=== PATIENT | female | born 1950 | race Caucasian/White ===

== ENCOUNTER 2017-10-15 22:44 | Emergency (ER) | payer OTHER, MEDICARE ==
[~2017-10-15] VITALS: Ht 170.2 cm; Wt 77.1 kg
--- NOTE | 2017-10-15 23:53 | ED GENERAL ADULT ---
History of Present Illness General Chief Complaint: General Adult Stated Complaint: HIGH BP Source: patient, family, old records Exam Limitations: no limitations Vital Signs & Intake/Output Vital Signs & Intake/Output Vital Signs Date Time Temp Pulse Resp B/P B/P Pulse O2 O2 Flow FiO2 Mean Ox Delivery Rate 10/15 2353 174/82 10/15 2351 Room Air 10/15 2251 98.0 87 20 180/96 96 Room Air ED Intake and Output 10/16 0000 10/15 1200 Intake Total 0 Output Total Balance 0 Intake, Oral 0 Patient 170 lb Weight Allergies Coded Allergies: MDX - Morphine (MORPHINE) (Intermediate, RASH 06/11/10) MDX - Naproxen (From NAPROSYN) (Intermediate, RASH 06/11/10) Uncoded Allergies: Allergy Other N Med Allergies MORPHINE Reconcile Medications Aspirin (Aspirin*) 81 MG TAB.CHEW 1 TAB PO DAILY PROPHYLAXIS (Reported) Fenofibrate (Tricor) 48 MG TABLET 1 TAB PO DAILY HIGH CHOLESTEROL (Reported) Labetalol HCl 100 MG TABLET 1 TAB PO BID HYPERTENSION (Reported) Levothyroxine Sodium (Synthroid) 100 MCG TABLET 1 TAB PO DAILY HYPOTHYROIDISM (Reported) Triamterene/Hydrochlorothiazid (Dyazide 37.5-25 Capsule) 37.5 MG-25 MG CAPSULE 1 CAP PO DAILY HYPERTENSION (Reported) Triamterene/Hydrochlorothiazid (Dyazide 37.5-25 Capsule) 37.5 MG-25 MG CAPSULE 1 CAP PO DAILY DIURETIC (Reported) Triage Note: PT TO TRIAGE C/O HIGH BLOOD PRESSURE. MANUAL BP IN TRIAGE 180/96. DENIES PAIN, BLURRED VISION. STATES RECENT CHANGE IN BP MEDS, TAKE LABETOLOL 100MG. DENIES CP/SOB. Triage Nurses Notes Reviewed? yes HPI: Patient has been taking her blood pressure at home secondary to hypertension. Patient recently changed from metoprolol to labetalol. Patient blood pressure was elevated this evening. She denies any headache or blurry vision. There is no nausea or vomiting. She took it again and it was even higher so she comes into the emergency room for evaluation. Past History Travel History Traveled to [place] past 21 day No Medical History Any Pertinent Medical History? see below for history Cardiovascular: hypertension Endocrine: hypothyroidism Surgical History Surgical History: non-contributory Psychosocial History What is your primary language Croatian Tobacco Use: Current Not Daily Daily Tobacco Use Amount/Type: =< 4 Cigarettes daily ETOH Use: denies use Illicit Drug Use: denies illicit drug use Family History Hx Contributory? No Review of Systems Review of Systems Constitutional: Reports: no symptoms. EENTM: Reports: no symptoms. Respiratory: Reports: no symptoms. Cardiovascular: Reports: no symptoms. GI: Reports: no symptoms. Genitourinary: Reports: no symptoms. Musculoskeletal: Reports: no symptoms. Skin: Reports: no symptoms. Neurological/Psychological: Reports: no symptoms. Hematologic/Endocrine: Reports: no symptoms. Immunologic/Allergic: Reports: no symptoms. All Other Systems: Reviewed and Negative Physical Exam Physical Exam General Appearance: well developed/nourished, alert, awake, anxious Head: atraumatic, normal appearance Eyes: Bilateral: PERRL, EOMI. Ears, Nose, Throat: normal pharynx, normal ENT inspection, hearing grossly normal Neck: normal inspection, supple, full range of motion Respiratory: normal breath sounds, chest non-tender, no respiratory distress, lungs clear Cardiovascular: regular rate/rhythm, normal peripheral pulses Gastrointestinal: normal bowel sounds, soft, non-tender, no organomegaly Back: normal inspection, normal range of motion Extremities: normal inspection, normal capillary refill, normal range of motion, no edema Neurologic/Psych: no motor/sensory deficits, awake, alert, oriented x 3, normal gait, normal mood/affect Skin: intact, normal color, warm/dry Lymphatic: no anterior cervical naomi Core Measures ACS in differential dx? No CVA/TIA Diagnosis: No Sepsis Present: No Sepsis Focused Exam Completed? No Progress Differential Diagnoses I considered the following diagnoses in my evaluation of the patient: [ Hypertensive urgency, electrolyte abnormality, and organ damage] Plan of Care: Orders Procedure Date/time Status URINALYSIS 10/16 2323 Complete TROPONIN LEVEL 10/16 2323 Complete COMPREHENSIVE METABOLIC PANEL 10/16 2323 Complete CBC WITHOUT DIFFERENTIAL 10/16 2323 Complete EKG 10/15 2254 Active Laboratory Tests 10/16/17 0005: Urine Color YEL, Urine Clarity CLDY H, Urine pH 6.0, Ur Specific [place] >= 1.030, Urine Protein NEG, Urine Ketones NEG, Urine Nitrite NEG, Urine Bilirubin NEG, Urine Urobilinogen 0.2, Ur Leukocyte Esterase MOD H, Ur Microscopic SEDIMENT EXAMINED, Urine RBC 5-10 H, Urine WBC 15-25 H, Ur Epithelial Cells MANY H, Urine Bacteria MANY H, Urine Mucus FEW, Urine Hemoglobin TRACE-INTACT, Urine Glucose NEG 10/16/17 0003: Anion Gap 10, Estimated GFR 41 L, BUN/Creatinine Ratio 15.4, Glucose 150 H, Calcium 9.5, Total Bilirubin 0.2, AST 34, ALT 40, Alkaline Phosphatase 91, Troponin I < 0.01, Total Protein 7.1, Albumin 4.1, Globulin 3.0, Albumin/ Globulin Ratio 1.4, CBC w Diff NO MAN DIFF REQ, RBC 4.38, MCV 92.0, MCH 31.5 H, MCHC 34.3, RDW 12.9, MPV 8.3, Gran % 63.5, Lymphocytes % 23.6, Monocytes % 6.1, Eosinophils % 5.7 H, Basophils % 1.1, Absolute Granulocytes 5.7, Absolute Lymphocytes 2.1, Absolute Monocytes 0.5, Absolute Eosinophils 0.5, Absolute Basophils 0.1 Initial ED EKG: NSR, no ST T wave changes Departure Departure Disposition: HOME OR SELF CARE Condition: Stable Clinical Impression Primary Impression: Hypertension Referrals: Michelle Lopez MD (PCP/Family) Griselda GAINES,Giorgi Saba Additional Instructions: Follow-up with Dr. Villalobos on Sunday. Return if symptoms worsen or for any concerns. Departure Forms: Customer Survey General Discharge Information Critical Care Note Critical Care Note Critical Care Time: non-applicable
[2017-10-15] MEDS ORDERED: DYAZIDE 37.5-21 EACH PO (23:55)
[2017-10-15] MEDS ORDERED: LABETALOL HCL100 M1 PO (23:56)
[2017-10-15] MEDS ORDERED: SYNTHROID100 MCG PO (23:56)
[2017-10-15] MEDS ORDERED: TRICOR48 M1 PO (23:56)
[2017-10-15] MEDS ORDERED: ASPIRIN81 M4 PO (23:57)
[2017-10-16 00:30] LABS: ABSOLUTE BASOPHIL COUNT 0.1 /CUMM (0.0-0.2); ABSOLUTE EOSINOPHIL COUNT 0.5 /CUMM (0.0-0.7); ABSOLUTE GRANULOCYTE CT 5.7 /CUMM (1.4-6.5); ABSOLUTE LYMPH COUNT 2.1 /CUMM (1.2-3.4); ABSOLUTE MONOCYTE COUNT 0.5 /CUMM (0.10-0.60); BASOPHIL % 1.1 % (0.0-2.0); EOSINOPHIL % 5.7 % (0-5); GRANULOCYTE % 63.5 % (42.2-75.2); HEMATOCRIT 40.3 % (37-47); MEAN CORPUSCULAR HGB 31.5 PG (27.0-31.0); MEAN CORPUSCULAR HGB CONC 34.3 G/DL (33.0-37.0); MEAN PLATELET VOLUME 8.3 FL (7.4-10.4); PLATELET COUNT 305 /CUMM (130-400); RBC DISTRIBUTION WIDTH 12.9 % (11.5-14.5); RED BLOOD CELL CT 4.38 /CUMM (4.20-5.40); WHITE BLOOD CELL COUNT 8.9 /CUMM (4.8-10.8)
[2017-10-16 01:26] VITALS: BP 150/98
== END 2017-10-16 01:28 ==
LOC: ERH 22:44
PROVIDERS: Emergency Medicine
DX: I10 Essential (primary) hypertension (principal)
CPT/HCPCS: 81001; 93005; 93010